=== PATIENT | female | born 2000 | race Caucasian/White ===

== ENCOUNTER 2023-05-31 00:12 | Emergency (ER) | payer SELFPAY ==
[2023-05-31 00:41] LABS: Bilirubin Negative (Negative); Blood, Urine Large (Negative); Clarity Clear (Clear); Glucose, Urine (Dipstick) Negative (Negative); Ketone, Urine Negative (Negative); Leukocyte Large (Negative); Nitrite Negative (Negative); Pregnancy Test - Urine (BHCG) Negative (Negative); Pregu Control Background? CLEAR/WHITE (CLR/WHITE); Pregu Control Bar Appear? YES (CONTROL BAR); Protein, Urine (Dipstick) 30 mg/dL (Neg-Trace); Specific Gravity 1.003 (1.002-1.036); Urobilinogen 0.2 mg/dL (Less than 2)
[2023-05-31 00:43] LABS: CAUTI Indications for Culture Dysuria,urgency,freq; RBC/HPF 0-3 HPF (0-3); WBC/HPF 21-50 HPF (0-3)
[2023-05-31 00:44] LABS: Bacteria/HPF Rare-Few HPF (None Seen); Squamous Epithelial 0-3 HPF (0-3); Urine Culture Reflex Yes Yes
[2023-05-31] MEDS ORDERED: Ciprofloxacin 500 MG TAB ONE (00:56)
[2023-05-31 01:01] LABS: Specific Gravity, Urine 1.003 (1.005-1.030)
== END 2023-05-31 01:12 | disposition home or self-care (01) ==
LOC: BURERS 00:12
DX: N39.0 Urinary tract infection, site not specified (principal)
CPT/HCPCS: 81001; 81025; 87086; 99283